=== PATIENT | male | born 1995 | race Two or more races ===

== ENCOUNTER 2023-09-13 14:59 | Emergency (ER) | payer BC ==
[2023-09-13] MEDS ORDERED: Acetaminophen 500 MG Tab PO ONE (15:08)
[2023-09-13] MEDS ORDERED: Ibuprofen 400 MG Tab PO ONE (15:09)
[2023-09-13 15:41] LABS: APPEARANCE,URINE CLEAR; BILIRUBIN,URINE NEGATIVE (NEGATIVE); COLOR,URINE YELLOW; GLUCOSE,URINE NEGATIVE (NEGATIVE); KETONES,URINE >=80 mg/dL (NEGATIVE); LEUKOCYTE ESTERASE,URINE NEGATIVE (NEGATIVE); NITRITE,URINE NEGATIVE (NEGATIVE); OCCULT BLOOD,URINE TRACE-INTACT (NEGATIVE); PROTEIN,URINE NEGATIVE (NEGATIVE); UROBILINOGEN,URINE 0.2 EU/dL (<2.0)
[2023-09-13 16:02] LABS: EPITHELIAL CELLS,URINE RARE (NONE-FEW); RBC,URINE 0-2 (0-2/HPF); WBC,URINE 0-1 (0-5/HPF)
[2023-09-13 16:03] LABS: BACTERIA,URINE NOT SEEN (NEGATIVE)
[2023-09-13 16:04] LABS: CORONAVIRUS COVID-19 NAA NEGATIVE (NEGATIVE); INFLUENZA A NAA POSITIVE (NEGATIVE); INFLUENZA B NAA NEGATIVE (NEGATIVE); RESPIRATORY SYNCYTIAL VIR NAA NEGATIVE (NEGATIVE)
== END 2023-09-13 16:39 | disposition home or self-care (01) ==
LOC: MW.ED 14:59
DX: J10.1 Influenza due to other identified influenza virus with other respiratory manifestations (principal)
CPT/HCPCS: 0241U; 71045; 81001; 99284; A9270; 99283

== ENCOUNTER 2023-09-19 11:55 | Emergency (ER) | payer BC ==
[2023-09-19 15:25] LABS: CORONAVIRUS COVID-19 NAA NEGATIVE (NEGATIVE); INFLUENZA A NAA POSITIVE (NEGATIVE); INFLUENZA B NAA NEGATIVE (NEGATIVE); RESPIRATORY SYNCYTIAL VIR NAA NEGATIVE (NEGATIVE)
[2023-09-19] MEDS ORDERED: Sodium Chloride 0.9% 500 ML IV SCH (15:45)
== END 2023-09-19 15:59 | disposition home or self-care (01) ==
LOC: MW.ED 11:55
DX: R05.9 Cough, unspecified (principal)
CPT/HCPCS: 0241U; 87651; 99283